=== PATIENT | male | born 1990 ===

== ENCOUNTER 2017-08-23 22:34 | Emergency (ER) | payer BC, MEDICAID ==
[2017-08-23 22:42] VITALS: BP 126/79; PULSE 98; RESP 16; TEMP 97.9; O2SAT 98
[2017-08-23] MEDS ORDERED: Tdap Vaccine 0.5 ml Vial (10-64 yrs) IM ONE ×2 (23:03→23:38)
--- NOTE | 2017-08-23 23:11 | ED PDOC ---
HPI: Trauma/Fall - HPI Time Seen by Provider: 08/23/17 22:44 Chief Complaint (Nursing): Wound Check History Per: Patient Additional Complaint(s): Pt. states on Monday he accidentally fell onto a wall with a wooden piece sticking out which punctured him on the L side of the chest. Has had localized pain in that area and noticed yellow discharge at the site of impact. Denies hemoptysis, SOB. Past Medical History Reviewed: Historical Data, Nursing Documentation, Vital Signs Vital Signs: Last Vital Signs Temp 97.9 F 08/23/17 22:38 Pulse 98 H 08/23/17 22:38 Resp 16 08/23/17 22:38 BP 126/79 08/23/17 22:38 Pulse Ox 98 08/23/17 22:38 - Family History Family History: States: No Known Family Hx - Home Medications Home Medications: Ambulatory Orders Medication Instructions Recorded Cephalexin [cephalexin] 500 mg PO Q6 #28 cap 08/24/17 Naproxen [Naprosyn] 500 mg PO Q12 PRN #20 tablet 08/24/17 - Allergies Allergies/Adverse Reactions: Allergies Allergy/AdvReac Type Severity Reaction Status Date / Time No Known Allergies Allergy Verified 08/23/17 22:39 Review of Systems ROS Statement: Except As Marked, All Systems Reviewed And Found Negative Physical Exam - Physical Exam Appears: Positive for: Well, Non-toxic, No Acute Distress Skin: Positive for: Normal Color, Warm. Negative for: Rash Cardiovascular/Chest: Positive for: Regular Rate, Rhythm. Negative for: Chest Non Tender (L sided upper axillar chest wall tenderness with superficial abrasion and minimal surrounding ecchymosis without swelling, fluctuance, induration, or discharge) Respiratory: Positive for: Normal Breath Sounds. Negative for: Decreased Breath Sounds, Accessory Muscle Use, Respiratory Distress Back: Positive for: Normal Inspection. Negative for: L CVA Tenderness, R CVA Tenderness, Vertebral Tenderness Neurologic/Psych: Positive for: Alert, Oriented - ECG O2 Sat by Pulse Oximetry: 98 - Progress ED Course And Treament: Tetanus prophylaxis administered. CT chest w/o contrast ordered. Disposition - Clinical Impression Clinical Impression: Chest injury - Patient ED Disposition Is Patient to be Admitted: Transfer of Care (Signed out to Maxime GALE pending CT results and final disposition) - Disposition Referrals: Obinna Riley MD [Primary Care Provider] - Disposition Time: 00:00 Condition: STABLE Prescriptions: Cephalexin [cephalexin] 500 mg PO Q6 #28 cap Naproxen [Naprosyn] 500 mg PO Q12 PRN #20 tablet PRN Reason: Pain, Moderate (4-7) Instructions: Taking Care of Bruises, Skin Abrasions Forms: [employer] (Palestinian)
[2017-08-23] MEDS ORDERED: Naproxen 500 MG TAB PO ONE ×2 (23:12→23:38)
--- NOTE | 2017-08-24 00:24 | CT ---
EXAM: CT Chest Without Intravenous Contrast EXAM DATE/TIME: 08/23/2017 11:03 PM CLINICAL HISTORY: 27 years old, male; Pain; Chest wall pain; Additional info: L sided chest S/P fall TECHNIQUE: Axial computed tomography images of the chest without intravenous contrast. All CT scans at this facility use one or more dose reduction techniques, viz.: automated exposure control; ma/kV adjustment per patient size (including targeted exams where dose is matched to indication; i.e. head); or iterative reconstruction technique. Coronal and sagittal reformatted images were created and reviewed. COMPARISON: No relevant prior studies available. 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 No evidence of vascular injury. No pneumothorax. No fractures. No effusions. No pulmonary contusions. Gastric dilation. Small splenules are noted. IMPRESSION: No acute findings.
--- NOTE | 2017-08-24 00:42 | ED PDOC ---
- ECG O2 Sat by Pulse Oximetry: 98 - Progress ED Course And Treament: Case endorsed to rfp writer from Haley GALE pending CT results EXAM: CT Chest Without Intravenous Contrast EXAM DATE/TIME: 08/23/2017 11:03 PM CLINICAL HISTORY: 27 years old, male; Pain; Chest wall pain; Additional info: L sided chest S/P fall TECHNIQUE: Axial computed tomography images of the chest without intravenous contrast. All CT scans at this facility use one or more dose reduction techniques, viz.: automated exposure control; ma/kV adjustment per patient size (including targeted exams where dose is matched to indication; i.e. head); or iterative reconstruction technique. Coronal and sagittal reformatted images were created and reviewed. COMPARISON: No relevant prior studies available. 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 No evidence of vascular injury. No pneumothorax. No fractures. No effusions. No pulmonary contusions. Gastric dilation. Small splenules are noted. IMPRESSION: No acute findings. Patient educated on CT findings, discharged with rx naproxen, keflex as planned from previous provider Advised follow up PMD 2-3 days. Return precautions given Disposition - Clinical Impression Clinical Impression: Chest injury - POA Present On Arrival: None - Disposition Referrals: Obinna Riley MD [Primary Care Provider] - Disposition: Routine/Home Disposition Time: 00:41 Condition: STABLE Prescriptions: Cephalexin [cephalexin] 500 mg PO Q6 #28 cap Naproxen [Naprosyn] 500 mg PO Q12 PRN #20 tablet PRN Reason: Pain, Moderate (4-7) Instructions: Taking Care of Bruises, Skin Abrasions Forms: [employer] (Mal[place]ian)
== END 2017-08-24 00:50 | disposition home or self-care (01) ==
LOC: H.ER 22:34
DX: S20.319A Abrasion of unspecified front wall of thorax, initial encounter (principal); S29.9XXA Unspecified injury of thorax, initial encounter; W22.8XXA Striking against or struck by other objects, initial encounter; Y92.89 Other specified places as the place of occurrence of the external cause